=== PATIENT | female | born 1975 | race Caucasian/White ===

== ENCOUNTER 2022-01-21 10:41 | Emergency (ER) | payer MEDICAID, SELFPAY ==
[2022-01-21 10:57] VITALS: BP 111/78; PULSE 99; RESP 18; TEMP 36.8; O2SAT 99; BMI 27.4
--- NOTE | 2022-01-21 11:26 | PC.NURSE ---
pt reports N/V/D and a productive cough for months. reports she is coughing up bile. reports she found out her house had mold in it and they have been staying in her boyfriends house since then with minimal improvement. Denies fevers. denies blood in urine. reports urine has foul odor and is a dark tea color. Pt speech clear, speaking in complete sentences without difficulty, lung sounds clear bilat, bowel sounds present, abdomen soft and nontender to palpation.
--- NOTE | 2022-01-21 12:01 | ED_ITS ---
HPI - General Adult General: Chief complaint: General Medical Stated complaint: Dark Urine/abd pain/N/V Time Seen by Provider: 01/21/22 11:06 History of Present Illness: Patient is a 46-year-old female with no known past medical history presents the emergency room for concerns of naus ea/vomiting/diarrhea, abdominal pain and dark urine for the last month. Patient tells me that she has been exposed to mold for the last few month. Patient noticed that her stool has be become watery. Patient reports that her urine appears to be dark and orange color. Patient denies taking any medication including Azo. Patient has any dysuria, polyuria or hematuria. Patient reports that she has been having loose stool for the last few weeks with associated nausea and vomiting. Patient also reports left lower quadrant right upper quadrant abdominal pain. Patient denies any fever/chills, cough, runny nose or sore throat. Onset: 1 month ago Duration:1 month Location:home Severity:moderate Associated symptoms: Reports nausea and vomiting; Deny chest pain, dyspnea, rash or palpitations Review of Systems 2 Const: Denies: fever(s) or chills Eyes: Denies: change in vision ENMT: Denies: mouth pain Card: Denies: chest pain or palpitations Resp: Denies: dyspnea or non-productive cough GI: Reports: abdominal pain (+RUQ and LUQ abd pain), nausea, vomiting and diarrhea : Reports: other (+dark orange urine); Denies: dysuria Musc: Denies: extremity pain Skin/Breast: Denies: rash or new lesions Neuro: Denies: weakness in extremities Psych: Reports: other (Normal mood) Param/Lymph: Denies: easy bruising PFSH ED PFSH: Surgical History Tubal ligation status Social History Smoking and tobacco status: never smoked Alcohol intake: never Substance/Drug Use: never Physical Exam Const: COMMON NORMALS: alert HENMT: COMMON NORMALS: atraumatic HEAD & SCALP: atraumatic MOUTH: moist mucous membranes not abnormal Eye: COMMON NORMALS: EOMs intact bilaterally and conjunctivae normal CONJUNCTIVA: Yes conjunctivae normal Neck/C-Spine: COMMON NORMALS: full ROM and supple Resp: COMMON NORMALS: normal respiratory effort and clear to auscultation bilaterally AUSCULTATION: clear to auscultation bilaterally Cardio: COMMON NORMALS: regular rate RATE: regular rate GI: COMMON NORMALS: Soft to palpation PALPATION: Yes Soft to palpation OTHER: +RUQ/LUQ and midepigasttric abd TTP. NO guarding rebound, guarding, rigidity. No CVA tenderness to percussion. Neg Fleming/Neg McBurney's point tenderness, no suprabupic tenderness to palpation. Extremity: COMMON NORMALS: full ROM Neuro: SENSORIUM/ORIENTATION: Yes alert MOTOR EXAM: No Abnormal motor strength present and Other motor observations present (no focal motor deficits) Psych: COMMON NORMALS: speech normal SPEECH: Yes normal speech MOOD & AFFECT: Yes euthymic mood Course Vital Signs: Vital signs: Vital Signs Temperature 98.3 F 01/21/22 10:57 Pulse Rate 99 01/21/22 10:57 Respiratory Rate 18 01/21/22 10:57 Blood Pressure 111/78 01/21/22 10:57 Pulse Oximetry 99 01/21/22 10:57 Oxygen Delivery Me thod 01/21/22 10:57 MDM - General Adult Medical Decision Making 46F history of tubal ligation presents emergency room with complaints of nausea vomiting and diarrhea. Patient has mild midepigastric and right upper quadrant abdominal tenderness palpation. Patient has a sodium 134, potassium 3.1. CT on pelvis showed steatosis. Patient has mild AST/ALT and alk phos elevation. Patient has no signs of signs of T bili elevation. This present, do not suspect any acute biliary pathology. Patient has been able to tolerate p.o. in the ER. Patient received IVF. No suspicion for other acute intra-abdominal pathology including SBO, biliary pathology, appendicitis, diverticulitis, or other emergent condition requiring surgery. UA consistent with UTI. Patient will give a prescription for cefdinir. Rx Maalox/pepcid PRN dyspepsia, and zofran PRN nausea/vomiting, cefdinir for UTI Disposition: Discharge. Patient counseled regarding diagnostic impression, treatment plan. Patient given ED strict return precautions to return for continuation, worsening, or development of new symptoms. Instructed to f/u w/ PCP regarding symptoms today. Patient verbalized understanding. Lab Data : 01/21/22 12:34 01/21/22 12:34 Radiology Impressions Abdomen/Pelvis CT 01/21/22 12:13 IMPRESSION: Hepatomegaly and severe steatosis. Laboratory Results WBC 6.8 10^3/uL (4.0-10.0) 01/21/22 12:34 RBC 3.74 10^6/uL (4.1-5.3) L 01/21/22 12:34 Hgb 13.5 g/dL (11.5-15.3) 01/21/22 12:34 Hct 40.6 % (37.0-47.0) 01/21/22 12:34 MCV 108.6 fl (81-99) H 01/21/22 12:34 MCH 36.1 pg (28.0-34.0) H 01/21/22 12:34 MCHC 33.3 g/dL (30.0-36.0) 01/21/22 12:34 RDW 14.6 % (12.1-15.1) 01/21/22 12:34 Plt Count 182 10^3/cmm (130-400) 01/21/22 12:34 MPV 9.8 fL (7.4-10.4) 01/21/22 12:34 Neut % (Auto) 58.9 % 01/21/22 12:34 Lymph % (Auto) 30.2 % 01/21/22 12:34 [place] % (Auto) 8.7 % 01/21/22 12:34 Eos % (Auto) 0.9 % 01/21/22 12:34 Baso % (Auto) 0.9 % 01/21/22 12:34 Neut # (Auto) 4.00 10^3/uL (1.8-7.7) 01/21/22 12:34 Lymph # (Auto) 2.1 10^3/uL (0.8-4.8) 01/21/22 12:34 [place] # (Auto) 0.6 10^3/uL (0.2-0.9) 01/21/22 12:34 Eos # (Auto) 0.1 10^3/uL (0.0-0.8) 01/21/22 12:34 Baso # (Auto) 0.1 10^3/uL (0.0-0.1) 01/21/22 12:34 Nucleated RBC % (auto) 0 % 01/21/22 12:34 Nucleated RBCs # 0.0 /100WBC 01/21/22 12:34 Sodium 134 mmol/L (136-145) L 01/21/22 12:34 Potassium 3.1 mmol/L (3.5-5.1) L 01/21/22 12:34 Chloride 93 mmol/L (98-107) L 01/21/22 12:34 Carbon Dioxide 25 mmol/L (22-29) 01/21/22 12:34 Anion Gap 19.1 (5-19) H 01/21/22 12:34 BUN 4 mg/dL (6-20) L 01/21/22 12:34 Creatinine 0.3 mg/dL (0.5-0.9) L 01/21/22 12:34 GFR Calculation 237.4 mL/min (90-130) H 01/21/22 12:34 Glucose 104 mg/dL (65-115) 01/21/22 12:34 Calculated Osmolality 275 mOsm/kg (285-295) L 01/21/22 12:34 Calcium 9.1 mg/dL (8.5-10.5) 01/21/22 12:34 Total Bilirubin 1.0 mg/dL (0.15-1.2) 01/21/22 12:34 AST 221 U/L (0-32) H 01/21/22 12:34 ALT 139 U/L (0-33) H 01/21/22 12:34 Alkaline Phosphatase 253 U/L (35-105) H 01/21/22 12:34 Total Protein 6.5 g/dL (6.6-8.7) L 01/21/22 12:34 Albumin 3.2 g/dL (3.5-5.2) L 01/21/22 12:34 Globulin 3.3 g/dL (1.3-4.6) 01/21/22 12:34 Lipase 51 U/L (13-60) 01/21/22 12:34 Urine Color Dark yellow (Yellow) 01/21/22 15:53 Urine Appearance Cloudy (CLEAR) A 01/21/22 15:53 Urine pH 6.5 (5-7) 01/21/22 15:53 Ur Specific [place] 1.010 (1.005-1.030) 01/21/22 15:53 Urine Protein Neg (Negative) 01/21/22 15:53 Urine Glucose (UA) Norm (Normal) 01/21/22 15:53 Urine Ketones Negative (Negative) 01/21/22 15:53 Urine Blood Neg (Negative) 01/21/22 15:53 Urine Nitrate Positive (Negative) H 01/21/22 15:53 Urine Bilirubin Neg (Negative) 01/21/22 15:53 Urine Urobilinogen 1 mg/dL (Negative) H 01/21/22 15:53 Ur Leukocyte Esterase 1+ (Negative) H 01/21/22 15:53 Urine RBC 0-4 /hpf (0-2) H 01/21/22 15:53 Urine WBC 25-40 /hpf (0-5) H 01/21/22 15:53 Ur Squamous Epith Cells 5-10 /hpf (0-5) H 01/21/22 15:53 Amorphous Sediment Not Reportable 01/21/22 15:53 Urine Bacteria 4+ /hpf (NONE) H 01/21/22 15:53 Imaging Data Other Imaging: Radiologist's impression: [place] [address] [place] Scan Report Signed Patient: Saleem Vieira Unit #: [id number] : 1975 Age/Sex: 46 / F ADM Date: 01/21/22 Loc: ER Room/Bed: Attending Dr: Ordering Provider/Ordering MD: Sridhar Temple MD Date of Service: 01/21/22 Procedure(s): CT abdomen pelvis w con* [id number] Accession Number(s): [id number] Report Number: [id number] PROCEDURE INFORMATION: Exam: CT Abdomen And Pelvis With Contrast Exam date and time: 01/21/2022 3:16 PM Age: 46 years old Clinical indication: Abdominal pain; Additional info: Abd pain TECHNIQUE: Imaging protocol: Computed tomography of the abdomen and pelvis with contrast. Radiation optimization: All CT scans at this facility use at least one of these dose optimization techniques: automated exposure control; mA and/or kV adjustment per patient size (includes targeted exams where dose is matched to clinical indication); or iterative reconstruction. Contrast material: OMNIPAQUE 350; Contrast volume: 100 ml; Contrast route: INTRAVENOUS (IV);? COMPARISON: No relevant prior studies available. RADIATION DOSE METRICS: Total DLP (mGy-cm): 524.98 FINDINGS: Lungs: No acute findings within the included lung bases. Liver: Enlarged and severely fatty liver. No focal lesions. Gallbladder and bile ducts: Normal. No calcified stones. No ductal dilation. Pancreas: Normal. No ductal dilation. Spleen: Normal. No splenomegaly. Adrenal glands: Normal. No mass. Kidneys and ureters: No hydronephrosis. No mass. Stomach and bowel: No obstruction. No inflammatory changes. Appendix: No evidence of appendicitis. Intraperitoneal space: No free air. No significant fluid collection. Vasculature: Scattered atherosclerotic calcification. No abdominal aortic aneurysm. Lymph nodes: Unremarkable. No enlarged lymph nodes. Urinary bladder: Bladder partially filled. No stones. Reproductive: Unremarkable as visualized. Bones/joints: No acute or aggressive osseous lesion. Soft tissues: Partially imaged right breast implant. CT/CT abdomen pelvis w con* [id number] IMPRESSION: Hepatomegaly and severe steatosis. ? Dictated By: Nagi Lockwood MD Signed By: Nagi Lockwood MD Signed Date/Time: 01/21/22 1604 DD/ 1516 Discharge Plan Discharge Patient Disposition: Home Clinical Impression: Abdominal pain, Diarrhea, UTI (urinary tract infection) Condition: Stable Prescriptions: New Pepcid 20 mg tablet 20 mg PO BID PRN (Reason: abdominal pain) 10 Days Qty: 20 0RF ondansetron 4 mg tablet,disintegrating 4 mg PO TID PRN (Reason: nausea and vomiting) 4 Days Qty: 12 0RF Maalox Advanced 1,000-60 mg tablet,chewable 1 tab PO TID PRN (Reason: abdominal pain) 7 Days Qty: 21 0RF cefdinir 300 mg capsule 300 mg PO BID 7 Days Qty: 14 0RF No Action Aspir-81 81 mg Tablet,Delayed Release (Dr/Ec) 81 mg PO DAILY Excedrin Migraine 250-250-65 mg Tablet 2 tab PO Q6H PRN (Reason: Pain) Gas-X 80 mg Tablet,Chewable 80 mg PO DAILY PRN (Reason: unknown) Discharge Orders: Discharge ED (Routine); Ordered 01/21/22 Ordered By: Sridhar Temple Referrals: Juvencio Blue MD [Primary Care Provider] - Discharge Diet: Advance as tolerated Discharge Activity: Increase activity as tolerated Patient Instructions: Acute Nausea and Vomiting (ED), Acute Diarrhea (ED), Abdominal Pain (ED) Activity Restrictions/Additional Instructions: Please come back if you have any worsening abdominal pain, fever or chills, nausea or vomiting, diarrhea, blood in the stool, inability hold down liquid or solids, or any new concerning complaints. Coding Level of Care Code ED Pneumatic Jack Operator for Chg Fwd Exam Comprehensive
--- NOTE | 2022-01-21 12:13 | CTR_ITS ---
PROCEDURE INFORMATION: Exam: CT Abdomen And Pelvis With Contrast Exam date and time: 01/21/2022 3:16 PM Age: 46 years old Clinical indication: Abdominal pain; Additional info: Abd pain TECHNIQUE: Imaging protocol: Computed tomography of the abdomen and pelvis with contrast. Radiation optimization: All CT scans at this facility use at least one of these dose optimization techniques: automated exposure control; mA and/or kV adjustment per patient size (includes targeted exams where dose is matched to clinical indication); or iterative reconstruction. Contrast material: OMNIPAQUE 350; Contrast volume: 100 ml; Contrast route: INTRAVENOUS (IV); COMPARISON: No relevant prior studies available. RADIATION DOSE METRICS: Total DLP (mGy-cm): 524.98 FINDINGS: Lungs: No acute findings within the included lung bases. Liver: Enlarged and severely fatty liver. No focal lesions. Gallbladder and bile ducts: Normal. No calcified stones. No ductal dilation. Pancreas: Normal. No ductal dilation. Spleen: Normal. No splenomegaly. Adrenal glands: Normal. No mass. Kidneys and ureters: No hydronephrosis. No mass. Stomach and bowel: No obstruction. No inflammatory changes. Appendix: No evidence of appendicitis. Intraperitoneal space: No free air. No significant fluid collection. Vasculature: Scattered atherosclerotic calcification. No abdominal aortic aneurysm. Lymph nodes: Unremarkable. No enlarged lymph nodes. Urinary bladder: Bladder partially filled. No stones. Reproductive: Unremarkable as visualized. Bones/joints: No acute or aggressive osseous lesion. Soft tissues: Partially imaged right breast implant. CT/CT abdomen pelvis w con* [id number] IMPRESSION: Hepatomegaly and severe steatosis.
[2022-01-21 12:43] LABS: Basophils # 0.1 10^3/uL (0.0-0.1); Basophils % 0.9 %; Eosinophils # 0.1 10^3/uL (0.0-0.8); Eosinophils % 0.9 %; Hematocrit 40.6 % (37.0-47.0); Hemoglobin 13.5 g/dL (11.5-15.3); Lymphocytes # 2.1 10^3/uL (0.8-4.8); Lymphocytes % 30.2 %; Mean Corpuscular HGB Conc 33.3 g/dL (30.0-36.0); Mean Corpuscular Hemoglobin 36.1 pg (28.0-34.0); Mean Corpuscular Volume 108.6 fl (81-99); Mean Platelet Volume 9.8 fL (7.4-10.4); Monocytes # 0.6 10^3/uL (0.2-0.9); Monocytes % 8.7 %; Neutrophils % 58.9 %; Nucleated Red Blood Cells % 0 %; Platelet Count 182 10^3/cmm (130-400); Red Blood Count 3.74 10^6/uL (4.1-5.3); Red Cell Distribution Width 14.6 % (12.1-15.1); White Blood Count 6.8 10^3/uL (4.0-10.0)
[2022-01-21 13:06] LABS: Alanine Aminotransferase 139 U/L (0-33); Albumin Level 3.2 g/dL (3.5-5.2); Alkaline Phosphatase 253 U/L (35-105); Aspartate Amino Transferase 221 U/L (0-32); Blood Urea Nitrogen 4 mg/dL (6-20); Calcium 9.1 mg/dL (8.5-10.5); Carbon Dioxide 25 mmol/L (22-29); Chloride 93 mmol/L (98-107); Globulin 3.3 g/dL (1.3-4.6); Glomerular Filtration Rate 237.4 mL/min (90-130); Glucose 104 mg/dL (65-115); Lipase 51 U/L (13-60); Osmolality Calculated 275 mOsm/kg (285-295); Sodium 134 mmol/L (136-145); Total Protein 6.5 g/dL (6.6-8.7)
[2022-01-21 13:10] LABS: Anion Gap 19.1 (5-19); Potassium 3.1 mmol/L (3.5-5.1)
[2022-01-21] MEDS: iohexol 350 mg/mL 100 mL Btl IV (15:27)
[2022-01-21 16:38] LABS: Add Urine Culture? Yes; Add Urine Microscopic? YES; Bacteria Urine 4+ /hpf; Bilirubin Urine Neg (Negative); Blood Urine Neg (Negative); Glucose Urine UA Norm (Normal); Ketones Urine Negative (Negative); Leukocyte Esterase Urine 1+ (Negative); Nitrate Urine Positive (Negative); Protein Urine Neg (Negative); RBC Urine 0-4 /hpf (0-2); Urine Appearance Cloudy (CLEAR); Urine Color Dark Yellow (Yellow); Urobilinogen Urine 1 mg/dL (Negative); WBC Urine 25-40 /hpf (0-5); pH Urine 6.5 (5-7)
[2022-01-21] MEDS: lidocaine 2% viscous 15 ML, aluminum-mag hydrox-simethicon 30 ML, sucralfate oral liq 1 GM PO (17:06)
--- NOTE | 2022-01-21 18:31 | PC.NURSE ---
vital signs printed and attached to chart
== END 2022-01-21 18:39 | disposition home or self-care (01) ==
PROVIDERS: Emergency Provider Emergency Medicine; PCP Family Medicine
DX: N39.0 Urinary tract infection, site not specified (principal); R19.7 Diarrhea, unspecified; Z79.82 Long term (current) use of aspirin
CPT/HCPCS: 36415; 74177; 80053; 81001; 83690; 85025; 87077; 87086; 87186; 99285; Q9967